=== PATIENT | male | born 2000 | race Two or more races ===

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

== ENCOUNTER 2023-05-22 04:48 | Emergency (ER) | payer SELFPAY ==
[~2023-05-22] VITALS: Ht 177.8 cm; Wt 90.0 kg
[2023-05-22 05:33] LABS: CHLORIDE 109 mEq/L (98-107); INDEX HEMOLYSI 1 (1-3); INDEX ICTERIC 1 (1-4); INDEX LIPEMIC 1 (1-3); POTASSIUM 4.1 mEq/L (3.5-5.1); SODIUM 143 mEq/L (136-145)
[2023-05-22 05:44] LABS: ALANINE AMINOTRANSFERASE 22 IU/L (13-61); ALBUMIN 4.9 g/dL (3.4-5.0); ASPARTATE AMINOTRANSFERASE 27 IU/L (15-37); BILIRUBIN TOTAL 0.3 mg/dL (0.1-1.0); CALCIUM 9.5 mg/dL (8.5-10.1); CARBON DIOXIDE 31 mEq/L (21-32); CREATININE 1.1 mg/dL (0.6-1.3); GLUCOSE 91 mg/dL (70-105); PROTEIN TOTAL 8.9 g/dL (6.0-8.3); TROPONIN I HIGH SENSITIVITY 9 ng/L (<78); UREA NITROGEN BLOOD 20 mg/dL (7-21)
[2023-05-22 06:03] LABS: BASOPHILS % 0.3 % (0.0-2.0); EOSINOPHILS % 3.3 % (0.0-5.0); HEMATOCRIT. 47.4 % (42.0-52.0); HEMOGLOBIN. 15.7 g/dL (14.0-18.0); LYMPHOCYTES % 12.4 % (20.0-50.0); MEAN CORPUSCULAR HGB CONC 33.1 g/dL (31.0-37.0); MEAN CORPUSCULAR VOLUME 81.7 fL (80.0-94.0); MONOCYTES % 8.9 % (2.0-8.0); NEUTROPHILS % 75.1 % (40.0-76.0); RED BLOOD CELL COUNT 5.79 mill/uL (4.7-6.1); RED CELL DISTRIBUTION WIDTH 13.9 % (11.6-14.6); WHITE BLOOD COUNT 15.3 x1000/uL (4.5-11.0)
[2023-05-22 06:07] LABS: DIFFERENTIAL COMMENT 1
[2023-05-22] MEDS ORDERED: ALBUTEROL (0.083%) 2.5MG/3ML NEB HHN STA (06:14)
[2023-05-22] MEDS ORDERED: PREDNISONE 20MG TABLET PO STA (06:14)
[2023-05-22] MEDS ORDERED: IPRATROPIUM BROMIDE (0.02%) 0.5MG/2.5ML NEB HHN STA (06:14)
[2023-05-22 06:34] LABS: PARTIAL THROMBOPLASTIN TIME 28.2 sec (23.4-31.0); PROTHROMBIN TIME 10.3 sec (9.6-11.0)
[2023-05-22 07:07] VITALS: PULSE 107; RESP 18; O2SAT 97
[2023-05-22] MEDS ORDERED: IPRATROPIUM BROMIDE (0.02%) 0.5MG/2.5ML NEB HHN NR (07:15)
[2023-05-22] MEDS ORDERED: PREDNISONE 20MG TABLET PO NR (07:15)
[2023-05-22 07:24] LABS: BG BASE EXCESS -1.4 mmol/L (-2.0-2.0); BG CARBOXYHEMOGLOBIN 0.6 % (0.5-1.5); BG DEOXYHEMOGLOBIN 0.5 % (0.0-5.0); BG FRACTION INSPIRED OXYGEN 60; BG HCO3 ACT 23.4 mmol/L (22.0-26.0); BG METHEMOGLOBIN 0.5 % (0.0-1.5); BG OXYGEN SATURATION 99.5 % (92.0-98.5); BG OXYHEMOGLOBIN 98.4 % (94.0-97.0); BG PCO2 39.6 mmHg (35.0-45.0); BG PH 7.389 (7.350-7.450); BG PO2 213.5 mmHg (75.0-100.0); BG SAMPLE SITE RIGHT BRACHIAL; BG TOTAL HEMOGLOBIN 15.4 g/dL (12.0-18.0)
[2023-05-22 08:33] LABS: MEAN PLATELET VOLUME 8.9 fl (7.4-10.4); PLATELET 249 x1000/uL (130-400)
[2023-05-22] MEDS ORDERED: AZITHROMYCIN 500MG/250ML 250 ML IV ONE (09:00)
[2023-05-22] MEDS ORDERED: SODIUM CHLORIDE 0.9% 1,000 ML IV ONE (09:00)
[2023-05-22] MEDS ORDERED: MEROPENEM 1,000 MG in SODIUM CHLORIDE 0.9% 100 ML IV ONE (09:00)
[2023-05-22 12:16] LABS: CLARITY URINE CLEAR (CLEAR); COLOR URINE YELLOW (YELLOW); GLUCOSE URINE NEGATIVE (NEGATIVE); KETONES URINE NEGATIVE (NEGATIVE); LEUKOCYTE ESTERASE URINE NEGATIVE (NEGATIVE); NITRITE URINE NEGATIVE (NEGATIVE); OCCULT BLOOD URINE NEGATIVE (NEGATIVE); PROTEIN URINE TRACE (NEGATIVE); SPECIFIC GRAVITY URINE 1.031 (1.005-1.030)
[2023-05-22 13:08] LABS: *AMPHETAMINES SCREEN URINE NEGATIVE (NEGATIVE); *BARBITURATES SCREEN URINE NEGATIVE (NEGATIVE); *BENZODIAZEPINES SCREEN URINE NEGATIVE (NEGATIVE); *COCAINE SCREEN URINE NEGATIVE (NEGATIVE); CANNABINOID URINE SCREEN PRESUMTIVE POSITIVE (NEGATIVE); ECSTASY MDMA SCREEN URINE NEGATIVE (NEGATIVE); METHADONE URINE SCREEN NEGATIVE (NEGATIVE); OPIATES URINE SCREEN NEGATIVE (NEGATIVE); PHENCYCLIDINE URINE SCREEN NEGATIVE (NEGATIVE)
[2023-05-22 13:25] VITALS: BP 124/62; PULSE 84; RESP 18; TEMP 97.9
[2023-05-22 13:50] LABS: MUCUS URINE TRACE /lpf (NONE/TRACE)
[2023-05-22 13:51] LABS: SQUAMOUS EPITHELIAL CELL URINE NONE SEEN /lpf (RARE/1+)
[2023-05-22 13:52] LABS: BACTERIA URINE TRACE
[2023-05-22 13:53] LABS: RBC URINE NONE SEEN /hpf (0-2); WBC URINE 0-2 /hpf (0-2)
== END 2023-05-22 13:52 | disposition home or self-care (01) ==
LOC: ER 04:48 → CANBEDREQ 13:28 → ER 13:52
DX: R09.02 Hypoxemia (principal); J40 Bronchitis, not specified as acute or chronic; F12.10 Cannabis abuse, uncomplicated
CPT/HCPCS: 80053; 80305; 81003; 85025; 85379; 85610; 85730; 84484; 36415; 71045; 94640; 82805; 82375; 93005; 96368; 96361; 96365; 96366; 99285; 36600; J7512; J0456; J2185; Z7610 ×4; J7050; J7030